=== PATIENT | male | born 1995 | race Caucasian/White ===

== ENCOUNTER 2017-08-08 20:34 | Inpatient (IN) | payer OTHER ==
[2017-08-08 21:01] LABS: PLATELET COUNT 383 10^3/uL (150-400)
[2017-08-08] MEDS ORDERED: ONDANSETRON 4 MG/2 ML VIAL ONE (21:03)
[2017-08-08] MEDS ORDERED: ONDANSETRON 4 MG/2 ML VIAL IVP ONE (21:05)
[2017-08-08] MEDS ORDERED: fentaNYL 100 MCG/2 ML INJ ONE (21:09)
[2017-08-08] MEDS ORDERED: NS 1,000 ML IV ONE ×2 (21:12)
[2017-08-08] MEDS ORDERED: fentaNYL 100 MCG/2 ML INJ IVP ONE (21:12)
[2017-08-08] MEDS ORDERED: HYDROmorphONE/DILAUDID 2 MG/ML INJ IVP ONE (21:34)
[2017-08-08] MEDS ORDERED: HYDROmorphONE/DILAUDID 2 MG/ML INJ ONE (21:34)
--- NOTE | 2017-08-08 21:37 | EDPHY ---
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 Mitesh Aguilar. He came to the emergency department with complaint of abdominal pain and to be evaluated and admitted directly by Dr. Aguilar. The patient was seen by Dr. Aguilar shortly shortly after arrival and was admitted by Dr. Aguilar. I was not personally involved in the management of this patient. Smoking Status: Never smoked Constitutional: Initial Vital Signs Temperature (C) 36.5 C 08/08/17 20:36 Heart Rate 60 08/08/17 20:36 Respiratory Rate 24 H 08/08/17 20:36 Blood Pressure 115/72 08/08/17 20:36 O2 Sat (%) 100 08/08/17 20:36 O2 Delivery Mode Room Air Allergies/Adverse Reactions: ampicillin Allergy (Verified 08/08/17 20:36) Home Medications: Medication Instructions Recorded NK [No Known Home Meds] 08/08/17 Medical Decision Making - Diagnostics Imaging Results: Imaging Impressions Chest X-Ray 08/08/17 00:00 Impression: Normal. - Data Points Laboratory Results: Laboratory Results 08/08/17 20:49 08/08/17 20:49 08/08/17 08/08/17 08/08/17 20:49 20:49 20:49 WBC 16.09 10^3/uL H 10^3/uL (3.80-9.50) RBC 5.81 10^6/uL 10^6/uL (4.40-6.38) Hgb 17.8 g/dL H g/dL (13.7-17.5) Hct 50.4 % % (40.0-51.0) MCV 86.7 fL fL (81.5-99.8) MCH 30.6 pg pg (27.9-34.1) MCHC 35.3 g/dL g/dL (32.4-36.7) RDW 11.6 % % (11.5-15.2) Plt Count 383 10^3/uL 10^3/uL (150-400) MPV 10.4 fL fL (8.7-11.7) Neut % (Auto) 84.1 % H % (39.3-74.2) Lymph % (Auto) 10.9 % L % (15.0-45.0) [place] % (Auto) 4.3 % L % (4.5-13.0) Eos % (Auto) 0.1 % L % (0.6-7.6) Baso % (Auto) 0.2 % L % (0.3-1.7) Nucleat RBC Rel Count 0.0 % % (0.0-0.2) Absolute Neuts (auto) 13.52 10^3/uL H 10^3/uL (1.70-6.50) Absolute Lymphs (auto) 1.76 10^3/uL 10^3/uL (1.00-3.00) Absolute Monos (auto) 0.69 10^3/uL 10^3/uL (0.30-0.80) Absolute Eos (auto) 0.02 10^3/uL L 10^3/uL (0.03-0.40) Absolute Basos (auto) 0.03 10^3/uL 10^3/uL (0.02-0.10) Absolute Nucleated RBC 0.00 10^3/uL 10^3/uL (0-0.01) Immature Gran % 0.4 % % (0.0-1.1) Immature Gran # 0.07 10^3/uL 10^3/uL (0.00-0.10) Sodium 143 mEq/L mEq/L (135-145) Potassium 4.5 mEq/L mEq/L (3.5-5.2) Chloride 105 mEq/L mEq/L (97-110) Carbon Dioxide 20 mEq/l L mEq/l (22-31) Anion Gap 18 mEq/L H mEq/L (8-16) BUN 17 mg/dL mg/dL (7-23) Creatinine 1.0 mg/dL mg/dL (0.7-1.3) Estimated GFR > 60 Glucose 116 mg/dL H mg/dL (70-100) Calcium 11.1 mg/dL H mg/dL (8.5-10.4) Phosphorus 1.7 mg/dL L mg/dL (2.5-4.5) Total Bilirubin 1.8 mg/dL H mg/dL (0.1-1.4) Conjugated Bilirubin 0.6 mg/dL H mg/dL (0.0-0.5) Unconjugated Bilirubin 1.2 mg/dL H mg/dL (0.0-1.1) AST 70 IU/L H IU/L (17-59) ALT 48 IU/L IU/L (21-72) Alkaline Phosphatase 99 IU/L IU/L (38-126) Total Protein 8.5 g/dL H g/dL (6.3-8.2) Albumin 5.7 g/dL H g/dL (3.5-5.0) Lipase Pending Medications Given: Discontinued Medications Fentanyl (Sublimaze) 100 mcg IVP EDNOW ONE Stop: 08/08/17 21:13 Last Admin: 08/08/17 21:13 Dose: 100 mcg Hydromorphone HCl (Dilaudid) 0.5 - 1 mg IVP ONCE ONE Stop: 08/08/17 21:35 Last Admin: 08/08/17 21:36 Dose: 0.5 mg Sodium Chloride (Ns) 1,000 mls @ 0 mls/hr IV ONCE ONE PRN Reason: Wide Open Stop: 08/08/17 21:13 Last Admin: 08/08/17 21:13 Dose: 1,000 mls Sodium Chloride (Ns) 1,000 mls @ 0 mls/hr IV ONCE ONE PRN Reason: Wide Open Stop: 08/08/17 21:13 Last Admin: 08/08/17 21:13 Dose: 1,000 mls Ketorolac Tromethamine (Toradol) 30 mg IVP ONCE ONE Stop: 08/08/17 21:53 Last Admin: 08/08/17 22:13 Dose: 30 mg Ondansetron HCl (Zofran) 4 mg IVP EDNOW ONE Stop: 08/08/17 21:06 Last Admin: 08/08/17 21:00 Dose: 4 mg
[2017-08-08] MEDS ORDERED: KETOROLAC 30 MG/1 ML SDV IVP ONE (21:52)
[2017-08-08] MEDS ORDERED: ONDANSETRON 4 MG/2 ML VIAL IVP PRN (23:08)
[2017-08-08] MEDS ORDERED: ACETAMINOPHEN 325 MG TAB PO PRN (23:08)
[2017-08-08] MEDS: LR 1,000 ML IV SCH (23:28)
[2017-08-09] MEDS: KETOROLAC 15 MG/1 ML SDV IVP SCH ×4 (00:23→18:07)
[2017-08-09] MEDS: HYDROmorphone HCL/NS 0.5 MG/ML SYR IVP PRN ×3 (00:23→05:56)
--- NOTE | 2017-08-09 01:38 | GCON ---
[f rep st] CONSULTATION DATE OF CONSULTATION: 08/08/2017 REASON FOR EVALUATION: Abdominal pain. HISTORY OF PRESENT ILLNESS: 21-year-old healthy male presents to the emergency room this evening with sudden-onset, severe, bilateral upper quadrant abdominal pain with radiation towards his left shoulder. He reports 1 quasi-similar episode approximately 3 weeks ago. He reported that this may have been associated with a greasy meal, in retrospect. He denied any prior symptoms after that episode. Today's episode was of severe sudden onset. He took a couple of Tums, which he vomited shortly thereafter. Because of unrelenting symptoms throughout the afternoon, he requested that his parents bring him to the emergency room for further evaluation and management. Upon ED arrival, patient was noted to be pale, diaphoretic, severely retching with the above aforementioned complaints. After receipt of intravenous pain medications and his pain settled down, he was able to further expand upon his history that he denies significant history of heartburn or indigestion. He reports that his pain is now more localized within his epigastrium radiating to bilateral upper quadrants. He denies further shoulder pain. He denies a history of dark urine , acholic stools, or jaundice. He denies a history of black or tarry stools. He denies a history of peptic ulcer disease. PAST MEDICAL HISTORY: None. PAST SURGICAL HISTORY: None. MEDICATIONS: None. ALLERGIES: Ampicillin. SOCIAL HISTORY: No alcohol. No tobacco. 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 FAMILY HISTORY: Noncontributory. REVIEW OF SYSTEMS: Notable for above acute GI complaints only. PHYSICAL EXAMINATION: VITAL SIGNS: Temperature 36.5, blood pressure 115/70, pulse 60, respirations 24. GENERAL: After receipt of pain medication, the patient is alert and appropriate, mildly uncomfortable, anicteric. NECK: No cervical or supraclavicular lymphadenopathy. HEART: Regular without murmurs. LUNGS: Clear bilaterally. ABDOMEN: On initial exam with exquisite bilateral upper quadrant tenderness with guarding. After receipt of pain medication, bilateral upper quadrant tenderness without rebound or guarding is present. No CVA tenderness. No abdominal wall erythema. No hernias. EXTREMITIES: Without edema. NEUROLOGIC: Alert and appropriate. SKIN: Without rashes. DATA REVIEWED: White count 16, hemoglobin 18, platelets 380. Sodium 143, potassium 4.5, chloride 105, CO2 20, BUN 17, creatinine 1, glucose 116, calcium 11.1, phosphorus 1.7, total bilirubin 1.8 with a conjugated fraction of 0.6, AST 70, ALT 48, alkaline phosphatase 99. Lipase pending. Upright chest x-ray: Without free air. Upright KUB: Unremarkable bowel gas pattern. RUQ US with numerous stones, dilated CBD, peripancreatic fluid. IMPRESSIONS: 1. Gallstone pancreatitis - lipase dilution still pending. 2. Hypercalcemia/hypophosphatemia. PLAN: 1. Admit for pain control, IVF, serial labs/bowel rest. 2. Will need lap choly with IOC prior to discharge assuming continued lab improvement. 3. Repeat calcium with subsequent labs. /[id number]/MODL MTDD
[2017-08-09] MEDS: LR 1,000 ML IV SCH ×3 (05:56→19:15)
--- NOTE | 2017-08-09 08:14 | SOAPPROG ---
SOAP Progress Note Assessment/Plan: Assessment:good night. pain markedly better. as toradol wears off, he notes increasing pain with inspiration. no nausea. afebrile. comfortable. skin color back to normal. abd soft, less distended. mild epigastric tenderness. no rebound or guarding. Lipase 6500. LFT improving. gallstone pancreatitis. continued supportive care, IVF, pain meds. OK for small sips clears today. Lap choly with IOC in the next 1-2 days prior to discharge assuming continued progress. Calcium normalized - reactive - no further workup needed here. Plan: 08/09/17 08:11 Objective: Vital Signs Temp Pulse Resp BP Pulse Ox 36.6 C 60 14 122/58 H 95 08/09/17 03:43 08/09/17 03:43 08/09/17 03:43 08/09/17 03:43 08/09/17 03:43 Laboratory Results 08/09/17 04:51 08/08/17 08/09/17 08/10/17 05:59 05:59 05:59 Intake Total 1999 Balance 1999 ICD10 Worksheet Patient Problems: Problems Problem Status Onset Gallstone pancreatitis Acute - ICD10 Problem Qualifiers (1) Gallstone pancreatitis
--- NOTE | 2017-08-09 08:49 | PDMN ---
Medical Necessity Medical necessity: C/M review: Patient meets INPT criteria under [facility] [place] M-251 Pancreatitis, with common duct stone: Acute gallstone pancreatitis, acute and persistent RUQ abdominal pain, cholelithiasis with multiple gallstones in the gallbladder fundus with sonographic Vaughn sign and gallbladder hydrops, dilated common bile duct on US, Lipase > 93800, 6213, Total bilirubin 1.8, 1.5, AST 70, 37, Ca 11.1, 9.1, WBC 16.09 requiring planned future surgical intervention in 1-2 days (08/10/2017 or 08/11/2017) during this admission - laparoscopic cholecystectomy with intraoperative cholangiogram ongoing IV Ketorolac Q 6 hrs. scheduled, frequent doses IV Dilaudid, IV LR 150 ml/hr. infusion, transition from NPO to clear liquids 08/09/2017. antivipates > 2 MN LOS for ongoing med nec for eval and TX of above.
--- NOTE | 2017-08-09 16:15 | ASMTCMCOM ---
CM Note CM Note Notes: Pt has been admitted with epigastric pain, probable gallstone pancreatitis. Lap cricket planned in 1-2 days if needed. CM will follow for any d/c needs but anticipate he will d/c home independently when medically cleared. Date Signed: 08/09/2017 04:14 PM Electronically Signed By:ROSLYN Winn
[2017-08-10] MEDS: LR 1,000 ML IV SCH (00:32)
[2017-08-10] MEDS: KETOROLAC 15 MG/1 ML SDV IVP SCH ×5 (00:32→23:33)
--- NOTE | 2017-08-10 10:23 | SOAPPROG ---
SOAP Progress Note Assessment/Plan: Assessment:no complaints. min pain persists. no nausea. avss. comfortable. abd soft, min epigastric tenderness. TB 1.6, lipase/transaminases resolving. gs pancr - plan for lap choly with IOC today. if evid of retained stone, will need ERCP postop. Risks and benefits were explained in detail. All questions entertained. good night. pain markedly better. as toradol wears off, he notes increasing pain with inspiration. no nausea. afebrile. comfortable. skin color back to normal. abd soft, less distended. mild epigastric tenderness. no rebound or guarding. Lipase 6500. LFT improving. gallstone pancreatitis. continued supportive care, IVF, pain meds. OK for small sips clears today. Lap choly with IOC in the next 1-2 days prior to discharge assuming continued progress. Calcium normalized - reactive - no further workup needed here. Plan: 08/09/17 08:11 08/10/17 10:21 Objective: Vital Signs Temp Pulse Resp BP Pulse Ox 36.2 C 78 18 124/67 H 95 08/10/17 08:00 08/10/17 08:00 08/10/17 08:00 08/10/17 08:00 08/10/17 08:00 Laboratory Results 08/10/17 04:50 08/09/17 08/10/17 08/11/17 05:59 05:59 05:59 Intake Total 1999 1720 Balance 1999 1720 ICD10 Worksheet Patient Problems: Problems Problem Status Onset Gallstone pancreatitis Acute - ICD10 Problem Qualifiers (1) Gallstone pancreatitis
[2017-08-10] MEDS ORDERED: KETOROLAC 15 MG/1 ML SDV ONE (11:19)
[2017-08-10] MEDS ORDERED: LR 1,000 ML IV ONE (11:28)
[2017-08-10] MEDS ORDERED: BUPIVACAINE/EPI 0.5% 30 ML SDV ONE (11:29)
[2017-08-10] MEDS ORDERED: GLUCAGON HCL 1 MG VIAL ONE (11:30)
[2017-08-10] MEDS ORDERED: IOPAMIDOL (ISOVUE-M 300) 15 ML VIAL ONE (11:31)
--- NOTE | 2017-08-10 11:49 | PDANEPAE ---
ANE Past Medical History - Pulmonary History Hx Oxygen in Use at Home: No Hx Sleep Apnea: No Sleep Apnea Screening Result - Last Documented: Negative - Endocrine History Hx Diabetes: No - Chronic Pain History Chronic Pain: No ANE Review of Systems Review of Systems: ANE Patient History - Allergies Allergies/Adverse Reactions: ampicillin Allergy (Verified 08/08/17 20:36) - Home Medications Home Medications: NK [No Known Home Meds] 08/08/17 [Last Taken Unknown] - NPO status NPO Since - Liquids (Date): 08/09/17 NPO Since - Liquids (Time): 22:00 NPO Since - Solids (Date): 08/09/17 NPO Since - Solids (Time): 22:00 - Smoking Hx Smoking Status: Never smoked JESUSITA Labs/Vital Signs - Labs Result Diagrams: 08/08/17 20:49 08/10/17 04:50 - Vital Signs Blood Pressure: 124/67 Heart Rate: 78 Respiratory Rate: 18 O2 Sat (%): 95 Height: 185.42 cm Weight: 83.915 kg ANE Physical Exam - Airway Mallampati Score: Class 1 - ASA Status ASA Status: I ANE Anesthesia Plan Anesthesia Plan: general endotracheal anesthesia
[2017-08-10] MEDS ORDERED: MIDAZOLAM 2 MG/2 ML VIAL ONE (12:01)
[2017-08-10] MEDS ORDERED: PROPOFOL 200 MG/20 ML VIAL ONE (12:03)
[2017-08-10] MEDS ORDERED: ONDANSETRON 4 MG/2 ML VIAL ONE (12:16)
[2017-08-10] MEDS ORDERED: METOCLOPRAMIDE 10 MG/2 ML VIAL ONE (12:16)
[2017-08-10] MEDS ORDERED: ROCURONIUM 50 MG/5 ML VIAL ONE (12:16)
[2017-08-10] MEDS ORDERED: fentaNYL 100 MCG/2 ML INJ ONE ×3 (12:18→14:27)
--- NOTE | 2017-08-10 14:05 | POSTOPPROG ---
Post Op Note Date of Operation: 08/10/17 Surgeon: Chelly Ferguson Starting Sheet Tank Operator: Chelly Ferguson PA-C Anesthesia: GET(General Endotracheal) Pre-op Diagnosis: Gallstone pancreatitis Post-op Diagnosis: Gallstone pancreatitis Procedure: laparascopic cholecystectomy Findings: large gallbladder, large stones Inf/Abcess present in the surg proc area at time of surgery?: No EBL: Minimal Complications: No current complications Specimen(s): gallbladder with stones
[2017-08-10] MEDS ORDERED: PROMETHAZINE HCL 25 MG/ML INJ IVP PRN (14:08)
[2017-08-10] MEDS ORDERED: NALOXONE HCL 0.4 MG/ML INJ IVP PRN (14:08)
[2017-08-10] MEDS ORDERED: LR 500 ML IV PRN (14:08)
--- NOTE | 2017-08-10 14:10 | POSTANESTH ---
Post Anesthetic Evaluation Cardiovascular Status: Normal, Stable Respiratory Status: Normal, Stable Level of Consciousness/Mental Status: Can Participate in Eval Pain Control: Adequate, Prn Tx Ordered Nausea/Vomiting Control: Adequate, Prn Tx Ordered Complications Possibly Related to Anesthesia: None Noted
[2017-08-10] MEDS: fentaNYL 100 MCG/2 ML INJ IVP PRN ×3 (14:28→14:40)
[2017-08-10] MEDS ORDERED: HYDROmorphone HCL/NS 0.5 MG/ML SYR IVP PRN (15:02)
[2017-08-10] MEDS ORDERED: HYDROmorphONE/DILAUDID 2 MG/ML INJ ONE (15:02)
[2017-08-10] MEDS: HYDROmorphONE/DILAUDID 2 MG/ML INJ IVP PRN ×2 (15:06→15:16)
[2017-08-10] MEDS: HYDROmorphone HCL/NS 0.5 MG/ML SYR IVP PRN (15:45)
[2017-08-10] MEDS: HYDROCODONE/APAP 5/325 TAB PO PRN (19:18)
[2017-08-11] MEDS: HYDROCODONE/APAP 5/325 TAB PO PRN (03:48)
[2017-08-11] MEDS: KETOROLAC 15 MG/1 ML SDV IVP SCH (05:55)
--- NOTE | 2017-08-11 06:24 | GOP ---
[f rep st] OPERATIVE REPORT DATE OF OPERATION: 08/10/2017 SURGEON: Mitesh Aguilar MD [employer]: Chelly Ferguson PA-C. ANESTHESIA: General. ANESTHESIOLOGIST: Alok Saenz MD PREOPERATIVE DIAGNOSIS: Gallstone pancreatitis. POSTOPERATIVE DIAGNOSIS: Gallstone pancreatitis. PROCEDURE PERFORMED: Laparoscopic cholecystectomy with intraoperative cholangiography. FINDINGS: Extensive gallbladder hydrops. No filling defects in IOC. INDICATIONS: 21-year-old male admitted with gallstone pancreatitis. He clinically improved with conservative measures. His liver enzymes and lipase have continued to improve as well. He is taken to the operating room today for a laparoscopic cholecystectomy with intraoperative cholangiography. Surgical risks and benefits were explained of bleeding, infection, open conversion, bile duct injury, retained stone, potential need for postoperative ERCP as well as open conversion as well as others. All questions were answered. He desires to proceed. A ophthalmology surgical technician is standard and necessary and customary for the safe performance of this procedure. DESCRIPTION OF PROCEDURE: After general anesthesia was induced, the abdomen was pre-injected with 0.5% Marcaine with epinephrine. A vertical infraumbilical cutdown was created. A 10 mm trocar was placed under direct visualization. Three additional 5 mm upper abdominal ports were inserted. The gallbladder was massively distended and elongated. The hydropic gallbladder was retracted cephalad. The omental adhesions were lysed using the ultrasonic dissector. There was a moderate amount of periportal edema still present. Both cystic duct and artery were circumferentially encompassed, confirming the critical view of safety. The duct was moderately dilated in size. This was occluded on the gallbladder side and opened. There was a small amount of sludgy bile retrieved with retrograde milking of the cystic duct. Intraoperative cholangiography was performed showing normal intra and extrahepatic ducts without dilation as well as rapid duodenal emptying with a smooth ampullary tapering and no filling defects. The catheter was removed and duct was multiply clipped and divided with the ultrasonic dissector as was the artery. The gallbladder was peeled from liver bed fossa and brought through the umbilical port site intact using an EndoCatch pouch. Satisfactory hemostasis was assured. The infraumbilical midline fascia was closed with a running Vicryl suture. Wounds were closed with Monocryl suture, followed by and Dermabond. The patient was taken to Recovery uneventfully. /[id number]/MODL MTDD
[2017-08-11 07:38] VITALS: BP 114/63
--- NOTE | 2017-08-11 13:36 | GDS ---
[f rep st] DISCHARGE SUMMARY ADMISSION DIAGNOSIS: Gallstone pancreatitis. DISCHARGE DIAGNOSIS: Gallstone pancreatitis. HISTORY OF PRESENT ILLNESS: 21-year-old healthy male presented to the ER on Thursday night with gallstone pancreatitis. He was given pain medications, IV fluids, and kept n.p.o. On August 10, 2017, he underwent an uncomplicated laparoscopic cholecystectomy with intraoperative cholangiogram. No retained bile duct stones or enlargement were found. He was discharged home the following day in improved condition, ambulating in the halls independently, tolerating a regular diet with adequate pain control with oral analgesics. He will be seen in the office in 7-10 days for follow up. He was given a prescription for [place] 5/325. He was encouraged to use ibuprofen for pain as well. Liver enzymes will be re-checked at his return visit. Full discharge instructions as well as warning signs of missed retained stone were explained prior to leaving. /[id number]/MODL MTDD
== END 2017-08-11 12:05 | disposition home or self-care (01) | DRG 418 ==
LOC: F3E 23:20
PROVIDERS: ADMIT Surgery; ATTEND Surgery
PROC: BF101ZZ Fluoroscopy of Bile Ducts using Low Osmolar Contrast (ICD-10-PCS; principal; 2017-08-10 12:00)
PROC: 0FT44ZZ Resection of Gallbladder, Percutaneous Endoscopic Approach (ICD-10-PCS; principal; 2017-08-10 12:00)
DX: K85.10 Biliary acute pancreatitis without necrosis or infection (principal); K80.65 Calculus of gallbladder and bile duct with chronic cholecystitis with obstruction; E83.52 Hypercalcemia; E83.39 Other disorders of phosphorus metabolism
CPT/HCPCS: 96374; J1170; J1610; J1885; J2250; J2405; J2704; J2765; J3010; Q9967

== ENCOUNTER 2017-09-06 08:27 | Inpatient (IN) | payer OTHER ==
[2017-09-06] MEDS ORDERED: ONDANSETRON 4 MG/2 ML VIAL IVP PRN (09:39)
[2017-09-06] MEDS ORDERED: HYDROmorphone HCL/NS 0.5 MG/ML SYR IVP ONE ×2 (10:00→11:35)
[2017-09-06 10:17] LABS: PLATELET COUNT 303 10^3/uL (150-400)
[2017-09-06] MEDS: LR 1,000 ML IV SCH ×2 (10:25→18:35)
[2017-09-06 10:31] LABS: INR 1.03 (0.83-1.16); PROTIME(PATIENT) 13.7 SEC (12.0-15.0)
[2017-09-06] MEDS: KETOROLAC 15 MG/1 ML SDV IVP SCH ×3 (11:03→23:20)
[2017-09-06] MEDS: HYDROmorphone HCL/NS 0.5 MG/ML SYR IVP PRN ×2 (11:03→12:33)
[2017-09-06] MEDS ORDERED: NS 1,000 ML IV ONE (11:29)
[2017-09-06] MEDS ORDERED: NALOXONE HCL 0.4 MG/ML INJ IVP PRN (12:42)
--- NOTE | 2017-09-06 13:04 | GCON ---
[f rep st] CONSULTATION DATE OF CONSULTATION: 09/06/2017 REASON FOR CONSULTATION: Gallstone pancreatitis. HISTORY OF PRESENT ILLNESS: The patient is a pleasant 22-year-old male with past medical history sig nificant for cholecystectomy approximately 3 weeks ago, who presents with abdominal pain, documented to have elevated liver enzymes and pancreatitis consistent with gallstone pancreatitis. He was doing well up until yesterday with the acute onset of abdominal pain, and was directly admitted to the [facility] and noted to have elevated liver enzymes and elevated lipase along with his abdominal pain. He underwent cholecystectomy in mid July. There was a possibility of a stone on 1 of the imaging on dionicio zavala, but this was not seen on the subsequent image and his liver enzymes did normalize within a few days of cholecystectomy. He also had a gallstone pancreatitis when he was admitted in mid July. I am now called to help and evaluate for presumed choledocholithiasis causing a pancreatitis. PAST MEDICAL HISTORY: None. PAST SURGICAL HISTORY: Cholecystectomy on August 10, 2017. ALLERGIES: Ampicillin causes a rash. MEDICATIONS: At home, none. In-house are Toradol, Levaquin, Flagyl, Zofran, and Dilaudid p.r.n. SOCIAL HISTORY: He does not smoke. He drinks alcohol very infrequently. 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 FAMILY HISTORY: No colon cancer, colon polyps to his knowledge. REVIEW OF SYSTEMS: A complete review of systems was performed is negative other than in the HPI. Pe rtinent positives include abdominal pain, nausea. Pertinent negatives include no chest pain, diaphor esis, palpitations, fevers, chills, sweats, vomiting. PHYSICAL EXAM: GENERAL: Well-developed, well-nourished young man sitting in his bed, in mild discom fort. VITAL SIGNS: Blood pressure is 120/70, pulse is 51, respirations are 16. He is 98% on room a ir. Temperature 36.6. EYES: Mild icterus. [place]. EOMI. MOUTH: No lesions. Moist membranes. NE CK: Supple. Full range of motion. No JVD. BACK: No spine tenderness. No CVA tenderness. LUNGS: Clear to auscultation. CARDIAC: S1, S2. Alejandro, but regular rhythm. No murmurs, rubs, gallops ap preciated. ABDOMEN: Bowel sounds are decreased but normal in pitch. Abdomen is soft with tendernes s throughout the epigastrium with mild guarding. No rebound. No hepatosplenomegaly. EXTREMITIES: No cyanosis, clubbing, or edema. NEUROLOGIC: Cranial nerves intact, nonfocal. SKIN: No stigmata o f advanced liver disease. No rashes. LABORATORY DATA: Bilirubin 3.2, AST 534, ALT 550, alkaline phosphatase 155, lipase greater than 20,0 00. Sodium 144, potassium 4.8, chloride 102, bicarb 26, BUN 14, creatinine 0.9, calcium 10.1. WBC 1 4.64, hemoglobin 17.6, hematocrit 50.1, platelet count 303. ProTime 13.7, INR 1.03. His liver enzym es from August 14 were normal. AST 31, ALT 56, alkaline phosphatase 79. On August 08, when he was adm itted with his initial episode, AST was elevated at 70, ALT normal at 48, alkaline phosphatase normal at 99, bilirubin 1.8. Fluoroscopy performed during the cholecystectomy showed an equivocal filling defect in the common duct near the cystic duct insertion on the initial image, does not persist on 2nd image and may be related to artifact rather than choledocholithiasis. Abdominal ultrasound per formed August 08, 2017, cholelithiasis with multiple gallstones in the gallbladder fundus and sonograp hic Vaughn sign and gallbladder hydrops. There is no intra or extrahepatic biliary ductal dilatation . Common bile duct measures 4.1 mm. ASSESSMENT: Probable gallstone pancreatitis with elevated liver enzymes and lipase, abdominal pain, all post laparoscopic cholecystectomy in mid July. RECOMMENDATIONS: 1. Pain medications as per primary. The patient may benefit from using [facility] H[employer]PITAL[employer] MANAGER rather than p.r.n. IV. 2. N.p.o. 3. Follow liver enzymes and lipase in the morning. 4. If there is a dramatic improvement in all of his laboratory studies, may consider MRCP for evalua tion of choledocholithiasis. If his liver enzymes remain elevated and his lipase decreases, then we will proceed with ERCP for presumed choledocholithiasis causing gallstone pancreatitis. 5. Further recommendations to follow results and clinical course. Thank you for allowing me to participate in the patient's health care. Do not hesitate to call me wi th any questions. /[id number]/MODL
[2017-09-06] MEDS: HYDROmorphONE/DILAUDID 6 MG/30 ML PCA IV PRN (13:26)
[2017-09-06] MEDS: levOFLOXACIN 500 MG/DEXTROSE 100 ML IV SCH (13:31)
--- NOTE | 2017-09-06 14:15 | PDGENHP ---
History and Physical - Chief Complaint Abdominal pain nausea and vomiting - History of Present Illness This is a 22-year-old gentleman who presents to the hospital less than 1 month status post cholecystectomy with postprandial midepigastric pain radiating to his back and both shoulder blades. Patient had rigors at home according to his father-an anesthesiologist. Patient has had no relief with ibuprofen. No prior episodes between his surgery and now although he has had some malaise and malabsorption problems. History Information - Allergies/Home Medication List Allergies/Adverse Reactions: ampicillin Allergy (Verified 08/08/17 20:36) I have personally reviewed and updated: medical history, social history, surgical history - Past Medical History no pertinent PMH - Surgical History Reports: cholecystectomy - Family History Positive for: non-pertinent - Social History Smoking Status: Never smoked Alcohol Use: Rarely Drug Use: None Review of Systems Review of Systems: ROS: 10pt was reviewed & negative except for what was stated in HPI & below Gastrointestinal: Reports: abdominal pain, nausea Physical Exam Physical Exam: Alert obvious distress pain due to pancreatitis Sclerae icteric. Pupils 4 mm reactive Oropharynx slightly dried No JVD thyromegaly or supraclavicular adenopathy Trachea midline Regular rate and rhythm Tachycardic S1-S2 clearly audible no murmurs Abdomen tender diffusely unable to palpate spleen or liver. Well-healed scars from previous cholecystectomy. No CVA tenderness Extremities without edema 2+ over 2+ distal pulses radial and dorsalis pedis Stressed affect Temp Pulse Resp BP Pulse Ox 36.3 C 51 L 20 117/79 98 09/06/17 13:39 09/06/17 13:39 09/06/17 13:39 09/06/17 13:39 09/06/17 13:39 O2 (L/minute) 1.5 Lab Data & Imaging Review 09/06/17 10:11 09/06/17 10:11 WBC 14.64 10^3/uL (3.80-9.50) H 09/06/17 10:11 RBC 5.76 10^6/uL (4.40-6.38) 09/06/17 10:11 Hgb 17.6 g/dL (13.7-17.5) H 09/06/17 10:11 Hct 50.1 % (40.0-51.0) 09/06/17 10:11 MCV 87.0 fL (81.5-99.8) 09/06/17 10:11 MCH 30.6 pg (27.9-34.1) 09/06/17 10:11 MCHC 35.1 g/dL (32.4-36.7) 09/06/17 10:11 RDW 11.8 % (11.5-15.2) 09/06/17 10:11 Plt Count 303 10^3/uL (150-400) 09/06/17 10:11 MPV 10.6 fL (8.7-11.7) 09/06/17 10:11 Neut % (Auto) 85.2 % (39.3-74.2) H 09/06/17 10:11 Lymph % (Auto) 8.1 % (15.0-45.0) L 09/06/17 10:11 [place] % (Auto) 6.0 % (4.5-13.0) 09/06/17 10:11 Eos % (Auto) 0.3 % (0.6-7.6) L 09/06/17 10:11 Baso % (Auto) 0.1 % (0.3-1.7) L 09/06/17 10:11 Nucleat RBC Rel Count 0.0 % (0.0-0.2) 09/06/17 10:11 Absolute Neuts (auto) 12.46 10^3/uL (1.70-6.50) H 09/06/17 10:11 Absolute Lymphs (auto) 1.18 10^3/uL (1.00-3.00) 09/06/17 10:11 Absolute Monos (auto) 0.88 10^3/uL (0.30-0.80) H 09/06/17 10:11 Absolute Eos (auto) 0.05 10^3/uL (0.03-0.40) 09/06/17 10:11 Absolute Basos (auto) 0.02 10^3/uL (0.02-0.10) 09/06/17 10:11 Absolute Nucleated RBC 0.00 10^3/uL (0-0.01) 09/06/17 10:11 Immature Gran % 0.3 % (0.0-1.1) 09/06/17 10:11 Immature Gran # 0.05 10^3/uL (0.00-0.10) 09/06/17 10:11 PT 13.7 SEC (12.0-15.0) 09/06/17 10:11 INR 1.03 (0.83-1.16) 09/06/17 10:11 VBG Lactic Acid 3.8 mmol/L (0.7-2.1) H 09/06/17 10:11 Sodium 144 mEq/L (135-145) 09/06/17 10:11 Potassium 4.8 mEq/L (3.5-5.2) 09/06/17 10:11 Chloride 102 mEq/L (97-110) 09/06/17 10:11 Carbon Dioxide 26 mEq/l (22-31) 09/06/17 10:11 Anion Gap 16 mEq/L (8-16) 09/06/17 10:11 BUN 14 mg/dL (7-23) 09/06/17 10:11 Creatinine 0.9 mg/dL (0.7-1.3) 09/06/17 10:11 Estimated GFR > 60 09/06/17 10:11 Glucose 126 mg/dL (70-100) H 09/06/17 10:11 Calcium 10.1 mg/dL (8.5-10.4) 09/06/17 10:11 Total Bilirubin 3.2 mg/dL (0.1-1.4) H 09/06/17 10:11 Conjugated Bilirubin 1.8 mg/dL (0.0-0.5) H 09/06/17 10:11 Unconjugated Bilirubin 1.4 mg/dL (0.0-1.1) H 09/06/17 10:11 AST 534 IU/L (17-59) H 09/06/17 10:11 ALT 550 IU/L (21-72) H 09/06/17 10:11 Alkaline Phosphatase 155 IU/L (38-126) H 09/06/17 10:11 Total Protein 7.3 g/dL (6.3-8.2) 09/06/17 10:11 Albumin 4.7 g/dL (3.5-5.0) 09/06/17 10:11 Lipase > 07636 IU/L (23-300) H 09/06/17 10:11 Assessment & Plan Assessment: Gallstone pancreatitis Choledocholithiasis Nausea and pain secondary to the above Plan: Pain control with Dilaudid will start DIRECTOR OF DIGITAL TECHNOLOGY start Toradol IV hydration Infection prophylaxis with Levaquin and Flagyl as he is penicillin allergic, in anticipation ERCP GI consult for potential ERCP. Discussed with Dr. Mcknight Will reassess with laboratory studies in the morning if he continues to have elevated transaminases and lipase proceed ERCP if there is a traumatic improvement MRCP may be considered. The patient and his father understand.
--- NOTE | 2017-09-06 15:09 | PDMN ---
Medical Necessity Medical necessity: C/M review: Patient meets INPT criteria under [facility] Pancreatitis with Common Duct Stone: Acute and persistent gallstone pancreatitis, choledocholithiasis, nausea and abdominal pain secondary to the above WBC 14.64, VBG lactic acid 3.8, total bilirubin 3.2, AST 534, ALT 550, Alk phos 155, Lipase > 62246 requiring GI consult, reassess labs 09/07/2017 AM - if continued elevated transaminases and lipase plan to proceed with ERCP, if there is a an improvement, MRCP will be considered, ongoing NPO, IV LR 150 ml/ hr. 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 scheduled, IV Levaquin QD, IV Flagyl Q 8 hrs., IV Zofran, pulse oximetry, comorbid history of 08/08/2017 to 08/11/2017 hospitalization for gallstone pancreatitis and 08/10/2017 laparoscopic cholecystectomy with intraoperative choleangiogram. MD anticipates > 2 MN LOS for ongoing med nec for eval and TX of above.
[2017-09-07] MEDS: HYDROmorphONE/DILAUDID 6 MG/30 ML PCA IV PRN (05:41)
[2017-09-07] MEDS: KETOROLAC 15 MG/1 ML SDV IVP SCH ×4 (05:43→23:29)
[2017-09-07] MEDS: LR 1,000 ML IV SCH ×2 (07:22→21:25)
[2017-09-07] MEDS: levOFLOXACIN 500 MG/DEXTROSE 100 ML IV SCH (08:46)
--- NOTE | 2017-09-07 10:07 | SOAPPROG ---
SOAP Progress Note Assessment/Plan: Assessment/Plan: 22 yo with hx of gallstone pancreatitis treated with lap cricket 08/10/17 presents with signs of recurrent obstruction Lipase >20K now 12 Bili up to 6.5 from 3.2 Pain control better with BINGO FLOATER Consult GI (Dr Mcknight) possible ERCP later today RRR CTA Soft ND, much less tender no peritonitis Obstructive pancreatitis MRCP/ERCP planned for later today NPO IV fluid Supportive care 09/07/17 10:05 Objective: Vital Signs Temp Pulse Resp BP Pulse Ox 36.7 C 65 16 118/67 97 09/07/17 08:00 09/07/17 08:00 09/07/17 08:00 09/07/17 08:00 09/07/17 08:00 Laboratory Results 09/07/17 04:55 09/07/17 04:55 09/06/17 09/07/17 09/08/17 05:59 05:59 05:59 Intake Total 0 2882 Balance 0 2882 PT 13.7 SEC (12.0-15.0) 09/06/17 10:11 INR 1.03 (0.83-1.16) 09/06/17 10:11 ICD10 Worksheet Patient Problems: Problems Problem Status Onset Gallstone pancreatitis Acute
[2017-09-07] MEDS ORDERED: LR 1,000 ML IV ONE (11:32)
[2017-09-07] MEDS ORDERED: MIDAZOLAM 2 MG/2 ML VIAL IVP ONE (11:34)
--- NOTE | 2017-09-07 11:34 | PDANEPAE ---
ANE Past Medical History - Cardiovascular History Hx Hypertension: No Hx Arrhythmias: No Hx Chest Pain: No Hx Coronary Artery / Peripheral Vascular Disease: No Hx CHF / Valvular Disease: No Hx Palpitations: No - Pulmonary History Hx COPD: No Hx Asthma/Reactive Airway Disease: No Hx Recent Upper Respiratory Infection: No Hx Oxygen in Use at Home: No Hx Sleep Apnea: No Sleep Apnea Screening Result - Last Documented: Negative - Neurologic History Hx Cerebrovascular Accident: No Hx Seizures: No Hx Dementia: No - Endocrine History Hx Diabetes: No Hypothyroid: No Hyperthyroid: No Obesity: no Endocrine History Comment: acute gallstone pancreatitis - Renal History Hx Renal Disorders: No - Liver History Hx Hepatic Disorders: No - Neurological & Psychiatric Hx Hx Neurological and Psychiatric Disorders: No - Cancer History Hx Cancer: No - Congenital Disorder History Hx Congenital Disorders: No - GI History GERD: no Hx Gastrointestinal Disorders: No - Chronic Pain History Chronic Pain: No - Surgical History Prior Surgeries: lap cholecystectomy ANE Review of Systems Review of Systems: - Exercise capacity METS (RN): 5 METS - Systems Gastrointestinal: Reports: abdominal pain ANE Patient History - Allergies Allergies/Adverse Reactions: ampicillin Allergy (Verified 08/08/17 20:36) - Anes Hx Anes Hx: no prior problems - Smoking Hx Smoking Status: Never smoked - Alcohol Use Alcohol Use: Rarely - Family Anes Hx Family Anes Hx: neg - N/A ANE Labs/Vital Signs - Labs Result Diagrams: 09/07/17 04:55 09/07/17 04:55 - Vital Signs Blood Pressure: 126/64 Heart Rate: 65 Respiratory Rate: 16 O2 Sat (%): 96 Height: 185.42 cm Weight: 77.564 kg ANE Physical Exam - Airway Neck exam: FROM Mallampati Score: Class 1 Mouth exam: normal dental/mouth exam - Pulmonary Pulmonary: no respiratory distress, no rales or rhonchi, clear to auscultation - Cardiovascular Cardiovascular: regular rate and rhythym, no murmur, rub, or gallop - ASA Status ASA Status: I ANE Anesthesia Plan Anesthesia Plan: general endotracheal anesthesia Total IV Anesthesia: No
[2017-09-07] MEDS ORDERED: GLUCAGON HCL 1 MG VIAL ONE (11:44)
[2017-09-07] MEDS ORDERED: IOTHALAMATE MEG (CONRAY) 50 ML VIAL IV ONE (11:45)
[2017-09-07] MEDS ORDERED: PROPOFOL 200 MG/20 ML VIAL ONE (12:08)
[2017-09-07] MEDS ORDERED: fentaNYL 250 MCG/5 ML INJ ONE (12:08)
[2017-09-07] MEDS ORDERED: PROMETHAZINE HCL 25 MG/ML INJ IVP PRN (12:13)
[2017-09-07] MEDS ORDERED: LR 500 ML IV PRN (12:13)
[2017-09-07] MEDS ORDERED: HYDROmorphONE/DILAUDID 2 MG/ML INJ IVP PRN (12:13)
[2017-09-07] MEDS ORDERED: NALOXONE HCL 0.4 MG/ML INJ IVP PRN (12:13)
[2017-09-07] MEDS ORDERED: PHENYLEPHRINE HCL 100 MCG/ML SYR IVP PRN (12:13)
[2017-09-07] MEDS ORDERED: ONDANSETRON 4 MG/2 ML VIAL IVP PRN (12:13)
[2017-09-07] MEDS ORDERED: epHEDrine SULFATE 10 MG/ML SYR IVP PRN (12:13)
[2017-09-07] MEDS ORDERED: fentaNYL 100 MCG/2 ML INJ IVP PRN (12:13)
[2017-09-07] MEDS ORDERED: ONDANSETRON 4 MG/2 ML VIAL ONE (12:14)
[2017-09-07] MEDS ORDERED: ROCURONIUM 50 MG/5 ML VIAL ONE (12:15)
[2017-09-07] MEDS ORDERED: DEXAMETHASONE 4 MG/ML VIAL ONE (12:15)
[2017-09-07] MEDS ORDERED: LIDOCAINE 2% 5 ML SDV ONE (12:19)
[2017-09-07] MEDS ORDERED: KETOROLAC 30 MG/1 ML SDV ONE (13:05)
--- NOTE | 2017-09-07 13:16 | GIREPORT ---
[facility] Surgical Services - Endoscopy Department Patient Name: JORDI GALLOWAY Procedure Date: 09/07/2017 12:16 PM Patient Type: Inpatient Attending MD/ ER Physician: Vijay Kay Procedure: ERCP Indications: Abdominal pain of suspected pancreatic origin, Suspected bile duct ston e(s), Abnormal liver function test Providers: Hugh Mcknight MD Medicines: General Anesthesia Complications: No immediate complications. Estimated blood loss: Minimal. Description of Procedure: After obtaining informed consent, the scope was passed under direct vis ion. Throughout the procedure, the patient's blood pressure, pulse, and oxyg en saturations were monitored continuously. The Duodenalscope was introduc ed through the mouth, and advanced to the duodenum and used to inject cont rast into the bile duct. The ERCP was accomplished without difficulty. The patient tolerated the procedure well. Findings: The char house supervisor film was normal. The esophagus was successfully intubated und er direct vision. The scope was advanced to a normal major papilla in the descending duodenum without detailed examination of the pharynx, larynx and associated structures, and upper GI tract. The upper GI tract was gross ly normal. The bile duct was deeply cannulated with the short-nosed tracti on sphincterotome. Contrast was injected. I personally interpreted the indu e duct images. Ductal flow of contrast was adequate. Image quality was adequate. Contrast extended to the hepatic ducts. The lower third of th e main bile duct contained one stone, which was 5 mm in diameter. A 12 mm biliary sphincterotomy was made with a braided sphincterotome using ERB E electrocautery. There was no post-sphincterotomy bleeding. The lower th ird of the main bile duct contained one stone, which was 5 mm in diameter. The biliary tree was swept with a 12 mm balloon starting at the bifurcation . Sludge was swept from the duct. One stone was removed. No stones remain ed. Estimated Blood Loss: Estimated blood loss was minimal. Post Op Diagnosis: - Choledocholithiasis was found. Complete removal was accomplished by biliary sphincterotomy and balloon extraction. - A biliary sphincterotomy was performed. - The biliary tree was swept. Recommendation: - Clear liquid diet. - [facility]. - Thank you for allowing me to help in your patient's care. Do not hesi jewell to call with any questions. Attending Participation: I personally performed the entire procedure. Roxanna Reese M.D Hugh Mcknight MD 09/07/2017 1:15:35 PM This report has been signed electronicallyMathew MD Roxanna Number of Addenda: 0 Note Initiated On: 09/07/2017 12:16 PM [email or web address]
--- NOTE | 2017-09-07 14:17 | ASMTCASEMG ---
Living Arrangements What is your living Answers: Alone arrangement? Who do you live with? Type Of Residence What kind of residence do Answers: House you live in? 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 Patient was admitted for abdominal pain, elevated enzymes, and possible gallstone pancreatitis. No therapies have been ordered. Patient lives alone in [place] but his parents live in [place]. D/C plan likely to be independent. CM will follow for any needs that might arise. Date Signed: 09/07/2017 02:15 PM Electronically Signed By:Rachael López LCSW
[2017-09-08] MEDS: KETOROLAC 15 MG/1 ML SDV IVP SCH ×3 (05:47→17:51)
[2017-09-08] MEDS: LR 1,000 ML IV SCH ×2 (07:54→22:34)
--- NOTE | 2017-09-08 08:45 | SOAPPROG ---
SOAP Progress Note Assessment/Plan: Assessment:no new overnight issues. bloated. min nausea. no flatus. avss. up in chair. mildly uncomfortable. abd dist, diffuse mild epigastric tenderness. no rebound. LFT improved. acute pancreatitis/choledocholithiasis s/p ERCP. slow progress. not ready for diet advancement at this time. cont clear/supportive care. trial bentyl for pain. Plan: 09/08/17 08:42 Objective: Vital Signs Temp Pulse Resp BP Pulse Ox 36.9 C 84 16 117/66 92 09/08/17 08:00 09/08/17 08:00 09/08/17 08:00 09/08/17 08:00 09/08/17 08:00 Laboratory Results 09/08/17 05:15 09/08/17 05:15 09/07/17 09/08/17 09/09/17 05:59 05:59 05:59 Intake Total 0 2 2072 Output Total 0 Balance 0 3631 2072 PT 13.7 SEC (12.0-15.0) 09/06/17 10:11 INR 1.03 (0.83-1.16) 09/06/17 10:11 ICD10 Worksheet Patient Problems: Problems Problem Status Onset Gallstone pancreatitis Acute
[2017-09-08] MEDS: DICYCLOMINE 10 MG CAP PO SCH ×3 (10:12→20:40)
[2017-09-08] MEDS ORDERED: ACETAMINOPHEN 500 MG TAB PO PRN (12:01)
--- NOTE | 2017-09-08 13:21 | SOAPPROG ---
FARHANA Progress Note Assessment/Plan: Assessment:Plan: 1) gallstone pancreatitis 2) abdo pain from #1, has more left sided pain, query fluid in the paracolic gutter? 3) LFt's - from CBD stone, coming down s/p ERCP and sphincterotomy and stone removal continue supportive care with pain control and slowly advancing diet if pain worsens, consider imaging 09/08/17 13:21 Subjective: CC- gallstone pancreatitis pt feeling about the same as last night still with abdo pain, now more on left side tolerating clears for now Objective: Vital Signs Temp Pulse Resp BP Pulse Ox 37.0 C 72 24 H 118/66 97 09/08/17 10:00 09/08/17 10:00 09/08/17 10:00 09/08/17 10:00 09/08/17 10:00 Laboratory Results 09/08/17 05:15 09/08/17 05:15 09/07/17 09/08/17 09/09/17 05:59 05:59 05:59 Intake Total 0 3632 2073 Output Total 0 Balance 0 3632 2073 PT 13.7 SEC (12.0-15.0) 09/06/17 10:11 INR 1.03 (0.83-1.16) 09/06/17 10:11 A+Ox3 CTA S1S2 +BS, soft tender both epi and along left paracolic gutter, I suspect that there maybe some fluid in that area causing the pain Laboratory Tests 09/06/17 09/07/17 09/07/17 10:11 04:55 04:55 Total Bilirubin 3.2 H 6.5 H D AST 534 H 228 H ALT 550 H 424 H Alkaline Phosphatase 155 H 148 H Lipase > 28262 H 97401 H 09/08/17 05:15 Total Bilirubin 1.9 H AST 78 H ALT 244 H Alkaline Phosphatase 152 H Lipase ICD10 Worksheet Patient Problems: Problems Problem Status Onset Gallstone pancreatitis Acute
[2017-09-08] MEDS ORDERED: HYDROmorphONE/DILAUDID 1 MG/ML INJ IVP PRN (14:05)
[2017-09-08] MEDS: oxyCODONE IR 5 MG TAB PO PRN ×2 (16:19→20:40)
[2017-09-09] MEDS: KETOROLAC 15 MG/1 ML SDV IVP SCH ×4 (00:50→17:45)
[2017-09-09] MEDS: DICYCLOMINE 10 MG CAP PO SCH ×4 (06:07→20:19)
--- NOTE | 2017-09-09 09:28 | SOAPPROG ---
<Chelly Ferguson - Last Filed: 09/09/17 09:23> SOAP Progress Note Assessment/Plan: Assessment: Recurrent gallstone pancreatitis, choledocholithiasis. Plan: Slow but appropriate progress. LFTs continue to trend down. Continue with clear fluids today, advance as tolerated. Pain improved with addition of bentyl. Continue ambulation and pulmonary toilet. No additional IV fluids or bowel prep at this time. 09/09/17 10:18 Subjective: No over night complaints. Pain slowly getting better, now worse on left flank vs epigastrium and LUQ. He feels his bloating and flatus have improved since yesterday. Tolerating clear fluids this morning better than yesterday. No nausea or vomiting. No urinary complaints. No BM. No chest pain or shortness of breath. Objective: Vital Signs Temp Pulse Resp BP Pulse Ox 37.6 C 78 16 127/62 H 94 09/09/17 07:56 09/09/17 07:56 09/09/17 07:56 09/09/17 07:56 09/09/17 07:56 Laboratory Results 09/08/17 05:15 09/08/17 05:15 09/08/17 09/09/17 09/10/17 05:59 05:59 05:59 Intake Total 3632 3912 1104 Output Total 0 Balance 3632 3912 1104 PT 13.7 SEC (12.0-15.0) 09/06/17 10:11 INR 1.03 (0.83-1.16) 09/06/17 10:11 Physical Exam: General: alert and oriented x3, appears comfortable HEENT: anicteric Skin: good turgor Heart: RRR Lungs: CTA bilaterally Abdomen: Mild diffuse left flank tenderness, no ecchymosis. Mild epigastric tenderness. Incisions healing nicely. Extremities: unremarkable Neuro: nonfocal ICD10 Worksheet Patient Problems: Problems Problem Status Onset Gallstone pancreatitis Acute <Mitesh Aguilar - Last Filed: 09/09/17 14:39> SOAP Progress Note Assessment/Plan: Assessment: doing well. notes left posterior back/flank pain. less upper abd pain. brien clears - no pain with meals. no heartburn. no back pain. avss. appears more comfortable. abd soft. focal superficial left flank/hip pain with light touch - this recreates his symptoms. s/p ERCP, retained stone. improving. pain appear to be muscular spasm rather than visceral related. trial flexeril. diet as tolerated. goal DC tomorrow if continued progress. Plan: 09/09/17 14:37 Objective: Vital Signs Temp Pulse Resp BP Pulse Ox 37.2 C 72 16 127/76 H 96 09/09/17 11:54 09/09/17 11:54 09/09/17 11:54 09/09/17 11:54 09/09/17 11:54 Laboratory Results 09/08/17 05:15 09/08/17 05:15 09/08/17 09/09/17 09/10/17 05:59 05:59 05:59 Intake Total 3632 3912 1104 Output Total 0 Balance 3632 3912 1104 PT 13.7 SEC (12.0-15.0) 09/06/17 10:11 INR 1.03 (0.83-1.16) 09/06/17 10:11
--- NOTE | 2017-09-09 13:46 | SOAPPROG ---
FARHANA Progress Note Assessment/Plan: Assessment:Plan: 1) gallstone pancreatitis 2) abdo pain from #1, has more left sided pain, query fluid in the paracolic gutter? 3) LFt's - from CBD stone, coming down s/p ERCP and sphincterotomy and stone removal continue supportive care with pain control and slowly advancing diet if pain worsens, consider imaging 09/08/17 13:21 09/09/17 13:43 as above 1) gallstone pancreatitis - slowly improving but still with pain more on left side, last narcotic was last evening, on Toradol and Bentyl 2) Diet - on clears, very slowly advancing as sx's improve 3) LFt's - will recheck today along with a lipase IF lipase jumps up or if pain worsens then will consider imaging of his abdomen Subjective: CC - gallstone pancreatitis s/p ERCP and stone removal pt still with pain, but feels he is getting better sitting on couch in room, tray of liquids at bedside has left sided abdo pain he says worsens with getting in and out of bed Objective: Vital Signs Temp Pulse Resp BP Pulse Ox 37.2 C 72 16 127/76 H 96 09/09/17 11:54 09/09/17 11:54 09/09/17 11:54 09/09/17 11:54 09/09/17 11:54 Laboratory Results 09/08/17 05:15 09/08/17 05:15 09/08/17 09/09/17 09/10/17 05:59 05:59 05:59 Intake Total 3632 3912 1104 Output Total 0 Balance 3632 3912 1104 PT 13.7 SEC (12.0-15.0) 09/06/17 10:11 INR 1.03 (0.83-1.16) 09/06/17 10:11 A+Ox3 CTA S1S2 +BS but decreased, abdo is soft but tender more on left no rebound ICD10 Worksheet Patient Problems: Problems Problem Status Onset Gallstone pancreatitis Acute
[2017-09-09] MEDS ORDERED: CYCLOBENZAPRINE 10 MG TAB PO PRN (14:35)
[2017-09-10] MEDS: KETOROLAC 15 MG/1 ML SDV IVP SCH ×3 (00:21→12:03)
[2017-09-10] MEDS: DICYCLOMINE 10 MG CAP PO SCH ×2 (05:18→12:02)
[2017-09-10 07:56] VITALS: BP 112/65
--- NOTE | 2017-09-10 14:07 | SOAPPROG ---
FARHANA Progress Note Assessment/Plan: Assessment:Plan: 1) gallstone pancreatitis 2) abdo pain from #1, has more left sided pain, query fluid in the paracolic gutter? 3) LFt's - from CBD stone, coming down s/p ERCP and sphincterotomy and stone removal continue supportive care with pain control and slowly advancing diet if pain worsens, consider imaging 09/08/17 13:21 09/09/17 13:43 as above 1) gallstone pancreatitis - slowly improving but still with pain more on left side, last narcotic was last evening, on Toradol and Bentyl 2) Diet - on clears, very slowly advancing as sx's improve 3) LFt's - will recheck today along with a lipase IF lipase jumps up or if pain worsens then will consider imaging of his abdomen 09/10/17 14:03 pt is much improved, tolerating regular diet, much less pain not full resolved ready to go home if all sx's resolve I would not do any imaging study Subjective: cc- gallstone pancreatitis pt feeling better ready to go home Objective: Vital Signs Temp Pulse Resp BP Pulse Ox 36.6 C 59 L 18 112/65 95 09/10/17 07:56 09/10/17 07:56 09/10/17 07:56 09/10/17 07:56 09/10/17 07:56 Laboratory Results 09/08/17 05:15 09/08/17 05:15 09/09/17 09/10/17 09/11/17 05:59 05:59 05:59 Intake Total 3912 2824 Balance 3912 2824 PT 13.7 SEC (12.0-15.0) 09/06/17 10:11 INR 1.03 (0.83-1.16) 09/06/17 10:11 +BS soft, nt A+Ox3 S1S2 ICD10 Worksheet Patient Problems: Problems Problem Status Onset Gallstone pancreatitis Acute
== END 2017-09-10 14:48 | disposition home or self-care (01) | DRG 440 ==
LOC: OBSVTOIN 08:57 → F3E 08:57
PROVIDERS: ADMIT Surgery; ATTEND Surgery
PROC: 0FC98ZZ Extirpation of Matter from Common Bile Duct, Via Natural or Artificial Opening Endoscopic (ICD-10-PCS; principal; 2017-09-07 11:45)
DX: K85.10 Biliary acute pancreatitis without necrosis or infection (principal); Z90.49 Acquired absence of other specified parts of digestive tract
CPT/HCPCS: J1100; J1170; J1610; J1885; J1956; J2250; J2370; J2405; J2704; J3010; Q9961

== ENCOUNTER → 2018-10-14 | Outpatient (CLI) | payer OTHER | LOC: FIMAGING 07:55 ==